=== PATIENT | male | born 1985 | race Asian ===

== ENCOUNTER 2016-10-16 12:36 | Emergency (ER) | payer OTHER ==
[~2016-10-16] VITALS: Ht 165.1 cm; Wt 0.9 kg
[2016-10-16 13:15] LABS: BASOPHIL % 0.3 % (0-2); PLATELET COUNT 235 x10^3mcL (130-400)
[2016-10-16 14:07] VITALS: BP 121/85
== END 2016-10-16 14:07 | disposition home or self-care (01) ==
LOC: ED 12:36
PROVIDERS: Emergency Medicine
DX: M79.672 Pain in left foot (principal); J45.909 Unspecified asthma, uncomplicated
CPT/HCPCS: Q0092